=== PATIENT | male | born 1965 | race Two or more races ===

== ENCOUNTER 2018-05-04 00:07 | Inpatient (IN) | payer MEDICAID ==
[~2018-05-04] VITALS: Ht 165.1 cm; Wt 63.0 kg
[2018-05-04] MEDS ORDERED: DIAZ5 PO (04:49)
[2018-05-04] MEDS ORDERED: MIRT30 PO (04:49)
[2018-05-04] MEDS ORDERED: LOPE2 PO (04:49)
[2018-05-04] MEDS ORDERED: LORA10TA7 PO (04:49)
[2018-05-04] MEDS ORDERED: PROP20TA18 PO (04:49)
[2018-05-04] MEDS ORDERED: ESCI10TA PO (04:49)
[2018-05-04] MEDS ORDERED: PROM25 PO (04:49)
[2018-05-04] MEDS ORDERED: PNEUMOCOCCAL VACCINE POLYVALENT 0.5 ML VIAL [PPSV23] IM ONE (06:00)
[2018-05-04 06:06] VITALS: BP 136/76
[2018-05-04] MEDS ORDERED: MAGNESIUM HYDROXIDE SUSPENSION 30 ML UDCUP PO PRN (06:15)
[2018-05-04] MEDS ORDERED: PETROLATUM,WHITE 71 GM JELLY TP PRN (06:15)
[2018-05-04] MEDS ORDERED: IBUPROFEN 400 MG TABLET PO PRN (06:15)
[2018-05-04] MEDS ORDERED: ONDANSETRON HCL 4 MG TABLET PO PRN (06:15)
[2018-05-04] MEDS ORDERED: CloNIDine HCL 0.1 MG TABLET PO PRN (06:15)
[2018-05-04] MEDS ORDERED: MAG HYDROX/AL HYDROX/SIMETH ES 30 ML SUSPENSION UDCUP PO PRN (06:15)
[2018-05-04] MEDS ORDERED: GuaiFENesin/D-METHORPHAN [SUGAR-FREE] 200-20MG/10 ML SYRUP UDCUP PO PRN (06:15)
[2018-05-04] MEDS ORDERED: ALBUTEROL SULFATE HFA 90 MCG/PUFF 8 GM INHALER IH PRN (06:15)
[2018-05-04] MEDS ORDERED: NICOTINE 14 MG/24 HOUR PATCH TD PRN (06:15)
[2018-05-04] MEDS ORDERED: DOCUSATE SODIUM 100 MG CAPSULE PO PRN (06:15)
[2018-05-04] MEDS ORDERED: ACETAMINOPHEN 325 MG TABLET PO PRN (06:15)
[2018-05-04 08:23] VITALS: BP_SYST 103; BP_SYST 120; BP_DIAS 60; BP_DIAS 73
[2018-05-04 09:49] LABS: ALANINE AMINOTRANSFERASE 34 U/L (12-78); ALBUMIN 2.8 g/dL (3.4-5.0); ALKALINE PHOSPHATASE 83 U/L (46-116); ANION GAP 7 mmol/L (8-16); ASPARTATE AMINOTRANSFERASE 38 U/L (15-37); CALCIUM, TOTAL 8.2 mg/dL (8.8-10.5); CARBON DIOXIDE 27 mmol/L (22-29); CHLORIDE 108 mmol/L (98-107); CHOL/HDL RATIO 1.8 (4.2-7.3); CHOLESTEROL 129 mg/dL (131-200); CREATININE 0.51 mg/dL (0.60-1.30); FREE T4 (FREE THYROXINE) 0.77 ng/dL (0.76-1.46); GLOMERULAR FILTR. RATE CALC > 60 mL/min (>60); GLUCOSE,RANDOM 76 mg/dL (70-110); HDL CHOLESTEROL 71 mg/dL (40-60); LDL CHOL (CALC.) 50 mg/dL (0-130); POTASSIUM 3.4 mmol/L (3.5-5.1); SODIUM SERUM 142 mmol/L (136-145); THYROID STIMULATING HORMONE 2.15 uIU/mL (0.36-3.74); TOTAL PROTEIN, SERUM 5.5 g/dL (6.4-8.2); TRIGLYCERIDES 42 mg/dL (15-150); UREA NITROGEN, BLOOD 16 mg/dL (7-18)
[2018-05-04] MEDS ORDERED: POTASSIUM CHLORIDE 20 MEQ ER TABLET PO ONE (12:15)
[2018-05-04] MEDS: LOPERAMIDE HCL 2 MG CAPSULE PO PRN ×2 (12:58→20:36)
[2018-05-04] MEDS: LORazepam 2 MG TABLET PO PRN ×2 (16:07→20:36)
[2018-05-04 16:16] VITALS: BP 108/64
[2018-05-04] MEDS ORDERED: QUEtiapine FUMARATE 25 MG TABLET PO SCH (21:00)
[2018-05-05 06:40] VITALS: BP 100/61
[2018-05-05 08:26] VITALS: BP 100/63
[2018-05-05] MEDS: LORazepam 2 MG TABLET PO PRN ×2 (08:56→16:34)
[2018-05-05] MEDS: LOPERAMIDE HCL 2 MG CAPSULE PO PRN (08:57)
[2018-05-05] MEDS: ESCITALOPRAM OXALATE 20 MG TABLET PO SCH (09:06)
[2018-05-05 09:21] LABS: BASOPHILS % (AUTO) 0.5 % (0.0-2.0); EOSINOPHILS % (AUTO) 2.5 % (1.0-6.0); HEMOGLOBIN 11.8 g/dL (13.5-17.5); LYMPHOCYTES # (AUTO) 1.5 K/uL (1.0-4.8); LYMPHOCYTES % (AUTO) 45.5 % (22.0-44.0); MEAN CORPUSCULAR HEMOGLOBIN 30.7 pg (26.0-34.0); MEAN CORPUSCULAR HGB CONC 32.9 G/dL (31.0-37.0); MEAN CORPUSCULAR VOLUME 93 fL (80-100); MONOCYTES # (AUTO) 0.4 K/uL (0.1-1.0); MONOCYTES % (AUTO) 10.9 % (2.0-9.0); NEUTROPHILS # (AUTO) 1.3 K/uL (1.8-7.7); NEUTROPHILS % (AUTO) 40.6 % (40.0-70.0); RED BLOOD CELL COUNT(AUTO) 3.86 MIL/uL (4.50-5.90); RED CELL DISTRIBUTION WIDTH 13.5 % (11.5-14.5)
[2018-05-05 09:27] LABS: ANION GAP 7 mmol/L (8-16); CALCIUM, TOTAL 8.1 mg/dL (8.8-10.5); CARBON DIOXIDE 26 mmol/L (22-29); CHLORIDE 109 mmol/L (98-107); CREATININE 0.54 mg/dL (0.60-1.30); GLOMERULAR FILTR. RATE CALC > 60 mL/min (>60); GLUCOSE,RANDOM 85 mg/dL (70-110); POTASSIUM 4.1 mmol/L (3.5-5.1); SODIUM SERUM 142 mmol/L (136-145); UREA NITROGEN, BLOOD 23 mg/dL (7-18)
[2018-05-05 10:28] LABS: PLATELET COUNT (AUTO) 80 K/uL (150-450)
[2018-05-05 16:30] VITALS: BP 123/65
[2018-05-05] MEDS ORDERED: QUEtiapine FUMARATE 100 MG TABLET PO SCH (21:00)
[2018-05-06 00:23] VITALS: BP 105/62
[2018-05-06] MEDS: ZOLPIDEM TARTRATE 10 MG TABLET PO PRN ×2 (02:37→22:31)
[2018-05-06] MEDS: LOPERAMIDE HCL 2 MG CAPSULE PO PRN ×2 (08:02→16:42)
[2018-05-06] MEDS: LORazepam 2 MG TABLET PO PRN ×3 (08:02→20:42)
[2018-05-06] MEDS: ESCITALOPRAM OXALATE 20 MG TABLET PO SCH (08:02)
[2018-05-06 08:25] VITALS: BP 130/76
[2018-05-06 16:12] VITALS: BP 121/77
[2018-05-06] MEDS: FERROUS SULFATE 325 MG EC TABLET PO SCH (16:27)
[2018-05-06] MEDS: LACTULOSE 20 GM/30 ML SOLUTION UDCUP PO SCH (17:15)
[2018-05-07 00:12] VITALS: BP 129/96
[2018-05-07] MEDS: LORazepam 2 MG TABLET PO PRN ×4 (02:39→22:43)
[2018-05-07] MEDS: FERROUS SULFATE 325 MG EC TABLET PO SCH ×3 (06:51→16:36)
[2018-05-07] MEDS: LOPERAMIDE HCL 2 MG CAPSULE PO PRN ×2 (06:51→20:16)
[2018-05-07] MEDS: LACTULOSE 20 GM/30 ML SOLUTION UDCUP PO SCH (08:04)
[2018-05-07] MEDS: ESCITALOPRAM OXALATE 20 MG TABLET PO SCH (08:05)
[2018-05-07] MEDS: QUEtiapine FUMARATE 100 MG TABLET PO SCH ×2 (08:05→16:36)
[2018-05-07 08:30] LABS: ALANINE AMINOTRANSFERASE 39 U/L (12-78); ALBUMIN 3.3 g/dL (3.4-5.0); ALKALINE PHOSPHATASE 96 U/L (46-116); ANION GAP 9 mmol/L (8-16); ASPARTATE AMINOTRANSFERASE 34 U/L (15-37); BILIRUBIN,TOTAL 0.6 mg/dL (0.1-1.0); CALCIUM, TOTAL 8.6 mg/dL (8.8-10.5); CARBON DIOXIDE 26 mmol/L (22-29); CHLORIDE 107 mmol/L (98-107); GLOMERULAR FILTR. RATE CALC > 60 mL/min (>60); GLUCOSE,RANDOM 82 mg/dL (70-110); POTASSIUM 4.1 mmol/L (3.5-5.1); SODIUM SERUM 142 mmol/L (136-145); TOTAL PROTEIN, SERUM 6.2 g/dL (6.4-8.2); UREA NITROGEN, BLOOD 16 mg/dL (7-18)
[2018-05-07 08:35] VITALS: BP 119/75
[2018-05-07 09:07] LABS: BASOPHILS % (AUTO) 0.3 % (0.0-2.0); EOSINOPHILS % (AUTO) 1.7 % (1.0-6.0); HEMOGLOBIN 12.3 g/dL (13.5-17.5); LYMPHOCYTES # (AUTO) 1.3 K/uL (1.0-4.8); LYMPHOCYTES % (AUTO) 29.2 % (22.0-44.0); MEAN CORPUSCULAR HEMOGLOBIN 30.5 pg (26.0-34.0); MEAN CORPUSCULAR HGB CONC 33.2 G/dL (31.0-37.0); MEAN CORPUSCULAR VOLUME 92 fL (80-100); MONOCYTES # (AUTO) 0.5 K/uL (0.1-1.0); MONOCYTES % (AUTO) 10.9 % (2.0-9.0); NEUTROPHILS # (AUTO) 2.5 K/uL (1.8-7.7); NEUTROPHILS % (AUTO) 57.9 % (40.0-70.0); RED BLOOD CELL COUNT(AUTO) 4.04 MIL/uL (4.50-5.90)
[2018-05-07 09:11] LABS: PLATELET COUNT (AUTO) 62 K/uL (150-450)
[2018-05-07] MEDS: FOLIC ACID 1 MG TABLET PO SCH (10:20)
[2018-05-07 16:03] VITALS: BP 106/65
[2018-05-07] MEDS: HALOPERIDOL 5 MG TABLET PO PRN (16:36)
[2018-05-08] MEDS: ZOLPIDEM TARTRATE 10 MG TABLET PO PRN (00:11)
[2018-05-08 00:49] VITALS: BP 124/79
[2018-05-08] MEDS: FERROUS SULFATE 325 MG EC TABLET PO SCH ×3 (06:26→16:02)
[2018-05-08 07:36] LABS: AMPHET/METH SCREEN,URINE NEGATIVE (NEGATIVE); BARBITURATE SCREEN, URINE NEGATIVE (NEGATIVE); BENZODIAZEPINES SCREEN,URINE POSITIVE (NEGATIVE); CANNABINOID SCREEN,URINE NEGATIVE (NEGATIVE); COCAINE SCREEN,URINE NEGATIVE (NEGATIVE); METHADONE SCREEN, URINE NEGATIVE (NEGATIVE); OPIATE SCREEN,URINE NEGATIVE (NEGATIVE)
[2018-05-08 07:40] LABS: PHENCYCLIDINE SCREEN,URINE NEGATIVE (NEGATIVE)
[2018-05-08 07:43] LABS: BILIRUBIN,URINE NEGATIVE (NEGATIVE); GLUCOSE, URINE (UA) NEGATIVE (NEGATIVE); KETONES,URINE NEGATIVE (NEGATIVE); LEUKOCYTE ESTERASE ,URINE NEGATIVE (NEGATIVE); NITRATE,URINE NEGATIVE (NEGATIVE); OCCULT BLOOD,URINE NEGATIVE (NEGATIVE); PH,URINE 6.5 (5.0-8.0); PROTEIN,URINE NEGATIVE (NEGATIVE)
[2018-05-08 07:50] LABS: APPEARANCE,URINE HAZY (CLEAR)
[2018-05-08 08:20] VITALS: BP 116/62
[2018-05-08] MEDS: ESCITALOPRAM OXALATE 20 MG TABLET PO SCH (08:26)
[2018-05-08] MEDS: LACTULOSE 20 GM/30 ML SOLUTION UDCUP PO SCH (08:26)
[2018-05-08] MEDS: QUEtiapine FUMARATE 100 MG TABLET PO SCH ×2 (08:26→16:03)
[2018-05-08] MEDS: FOLIC ACID 1 MG TABLET PO SCH (08:27)
[2018-05-08] MEDS: LORazepam 2 MG TABLET PO PRN (09:07)
[2018-05-08] MEDS: LOPERAMIDE HCL 2 MG CAPSULE PO PRN (09:07)
[2018-05-08 16:42] VITALS: BP 127/70
[2018-05-09 03:30] VITALS: BP 134/78
[2018-05-09] MEDS: HALOPERIDOL 5 MG TABLET PO PRN (03:33)
[2018-05-09] MEDS: LORazepam 2 MG TABLET PO PRN (03:33)
[2018-05-09] MEDS: FERROUS SULFATE 325 MG EC TABLET PO SCH ×4 (06:02→16:08)
[2018-05-09 08:23] VITALS: BP 122/80
[2018-05-09] MEDS: QUEtiapine FUMARATE 100 MG TABLET PO SCH ×2 (08:36→16:08)
[2018-05-09] MEDS: FOLIC ACID 1 MG TABLET PO SCH (08:36)
[2018-05-09] MEDS: ESCITALOPRAM OXALATE 20 MG TABLET PO SCH (08:36)
[2018-05-09] MEDS: LACTULOSE 20 GM/30 ML SOLUTION UDCUP PO SCH (08:37)
[2018-05-09 16:10] VITALS: BP 109/76
[2018-05-09] MEDS: ZOLPIDEM TARTRATE 10 MG TABLET PO PRN (23:02)
[2018-05-10 00:10] VITALS: BP 122/69
[2018-05-10] MEDS: HALOPERIDOL 5 MG TABLET PO PRN (00:46)
[2018-05-10] MEDS: LORazepam 2 MG TABLET PO PRN (00:46)
[2018-05-10] MEDS: FERROUS SULFATE 325 MG EC TABLET PO SCH ×3 (07:01→16:11)
[2018-05-10] MEDS: ESCITALOPRAM OXALATE 20 MG TABLET PO SCH (09:01)
[2018-05-10] MEDS: FOLIC ACID 1 MG TABLET PO SCH ×2 (09:01→16:14)
[2018-05-10] MEDS: LACTULOSE 20 GM/30 ML SOLUTION UDCUP PO SCH (09:01)
[2018-05-10] MEDS: QUEtiapine FUMARATE 100 MG TABLET PO SCH (09:01)
[2018-05-10 09:07] VITALS: BP 113/67
[2018-05-10 09:15] LABS: BASOPHILS % (AUTO) 0.5 % (0.0-2.0); EOSINOPHILS % (AUTO) 2.7 % (1.0-6.0); HEMATOCRIT 38.4 % (41-53); HEMOGLOBIN 12.6 g/dL (13.5-17.5); LYMPHOCYTES # (AUTO) 1.3 K/uL (1.0-4.8); LYMPHOCYTES % (AUTO) 39.9 % (22.0-44.0); MEAN CORPUSCULAR HEMOGLOBIN 30.7 pg (26.0-34.0); MEAN CORPUSCULAR HGB CONC 32.9 G/dL (31.0-37.0); MEAN CORPUSCULAR VOLUME 93 fL (80-100); MONOCYTES # (AUTO) 0.4 K/uL (0.1-1.0); MONOCYTES % (AUTO) 11.7 % (2.0-9.0); NEUTROPHILS # (AUTO) 1.5 K/uL (1.8-7.7); NEUTROPHILS % (AUTO) 45.2 % (40.0-70.0); RED BLOOD CELL COUNT(AUTO) 4.11 MIL/uL (4.50-5.90); RED CELL DISTRIBUTION WIDTH 14.8 % (11.5-14.5)
[2018-05-10 09:43] LABS: ALANINE AMINOTRANSFERASE 62 U/L (12-78); ALBUMIN 2.8 g/dL (3.4-5.0); ALKALINE PHOSPHATASE 86 U/L (46-116); ANION GAP 5 mmol/L (8-16); ASPARTATE AMINOTRANSFERASE 112 U/L (15-37); BILIRUBIN,TOTAL 0.3 mg/dL (0.1-1.0); CARBON DIOXIDE 28 mmol/L (22-29); CHLORIDE 108 mmol/L (98-107); CREATININE 0.59 mg/dL (0.60-1.30); GLOMERULAR FILTR. RATE CALC > 60 mL/min (>60); GLUCOSE,RANDOM 81 mg/dL (70-110); POTASSIUM 4.4 mmol/L (3.5-5.1); SODIUM SERUM 141 mmol/L (136-145); TOTAL PROTEIN, SERUM 5.7 g/dL (6.4-8.2); UREA NITROGEN, BLOOD 13 mg/dL (7-18)
[2018-05-10 16:11] VITALS: BP 113/74
[2018-05-10] MEDS: QUEtiapine FUMARATE 300 MG TABLET PO SCH (20:38)
[2018-05-11] MEDS: LORazepam 2 MG TABLET PO PRN ×3 (01:46→21:04)
[2018-05-11 01:50] VITALS: BP 113/73
[2018-05-11] MEDS: FERROUS SULFATE 325 MG EC TABLET PO SCH ×3 (06:44→16:53)
[2018-05-11 07:36] LABS: BASOPHILS % (AUTO) 0.5 % (0.0-2.0); EOSINOPHILS % (AUTO) 2.4 % (1.0-6.0); HEMATOCRIT 37.3 % (41-53); HEMOGLOBIN 12.3 g/dL (13.5-17.5); LYMPHOCYTES # (AUTO) 1.2 K/uL (1.0-4.8); LYMPHOCYTES % (AUTO) 41.1 % (22.0-44.0); MEAN CORPUSCULAR VOLUME 94 fL (80-100); MONOCYTES # (AUTO) 0.4 K/uL (0.1-1.0); NEUTROPHILS # (AUTO) 1.2 K/uL (1.8-7.7); RED BLOOD CELL COUNT(AUTO) 3.96 MIL/uL (4.50-5.90); RED CELL DISTRIBUTION WIDTH 14.7 % (11.5-14.5)
[2018-05-11 07:55] LABS: PLATELET COUNT (AUTO) 79 K/uL (150-450)
[2018-05-11] MEDS: FOLIC ACID 1 MG TABLET PO SCH ×2 (08:20→16:53)
[2018-05-11] MEDS: ESCITALOPRAM OXALATE 20 MG TABLET PO SCH (08:20)
[2018-05-11] MEDS: QUEtiapine FUMARATE 100 MG TABLET PO SCH (08:20)
[2018-05-11] MEDS: LACTULOSE 20 GM/30 ML SOLUTION UDCUP PO SCH (08:20)
[2018-05-11 10:12] VITALS: BP 138/76
[2018-05-11 16:00] VITALS: BP 120/74
[2018-05-11] MEDS: QUEtiapine FUMARATE 300 MG TABLET PO SCH (21:03)
[2018-05-12] MEDS: ZOLPIDEM TARTRATE 10 MG TABLET PO PRN (00:14)
[2018-05-12] MEDS: FERROUS SULFATE 325 MG EC TABLET PO SCH (06:14)
[2018-05-12 06:43] VITALS: BP 122/78
[2018-05-12 08:08] VITALS: BP 110/69
[2018-05-12] MEDS: QUEtiapine FUMARATE 100 MG TABLET PO SCH (09:04)
[2018-05-12] MEDS: FOLIC ACID 1 MG TABLET PO SCH (09:04)
[2018-05-12] MEDS: ESCITALOPRAM OXALATE 20 MG TABLET PO SCH (09:04)
[2018-05-12] MEDS: LACTULOSE 20 GM/30 ML SOLUTION UDCUP PO SCH (09:04)
[2018-05-12] MEDS ORDERED: QUET300T2 PO (10:34)
[2018-05-12] MEDS ORDERED: QUET100T PO (10:34)
[2018-05-12] MEDS ORDERED: ESCI20TA PO (10:35)
[2018-05-12] MEDS ORDERED: FERR-89 PO (10:43)
[2018-05-12] MEDS ORDERED: FOLI1 PO (10:43)
[2018-05-12] MEDS ORDERED: LACT30L PO (10:44)
== END 2018-05-12 12:37 | disposition home or self-care (01) | DRG 751 ==
LOC: EDSTATUS 00:09 → B2S 05:06 → B3A 05-11 14:00
PROVIDERS: ADMIT Psychiatry & Neurology Psychiatry; ATTEND Psychiatry & Neurology Psychiatry
DX: F33.2 Major depressive disorder, recurrent severe without psychotic features (principal); R45.851 Suicidal ideations; K72.90 Hepatic failure, unspecified without coma; F22 Delusional disorders; K74.60 Unspecified cirrhosis of liver; R45.87 Impulsiveness; F41.9 Anxiety disorder, unspecified; E87.6 Hypokalemia; F10.10 Alcohol abuse, uncomplicated; D72.819 Decreased white blood cell count, unspecified; D64.9 Anemia, unspecified; Z91.5 Personal history of self-harm; Z79.899 Other long term (current) drug therapy
CPT/HCPCS: 70551; 80307; 83036; 84439; 84443

== ENCOUNTER 2018-05-08 19:18 | Emergency (ER) | payer MEDICAID ==
[~2018-05-08] VITALS: Ht 167.6 cm; Wt 65.0 kg
[~2018-05-08 19:18] MED LIST: DIAZ5 PO; ESCI10TA PO; LOPE2 PO; LORA10TA7 PO; MIRT30 PO; PROM25 PO; PROP20TA18 PO
[2018-05-08 23:11] VITALS: BP 132/88
== END 2018-05-09 02:53 | disposition home or self-care (01) ==
LOC: EMS 19:20
DX: S62.395A Other fracture of fourth metacarpal bone, left hand, initial encounter for closed fracture (principal); W18.39XA Other fall on same level, initial encounter; Y93.89 Activity, other specified; Y92.89 Other specified places as the place of occurrence of the external cause; Y99.8 Other external cause status